=== PATIENT | female | born 1995 | race African-American/Black ===

== ENCOUNTER 2019-12-28 11:37 | Emergency (ER) | payer MEDICAID ==
[~2019-12-28] VITALS: Ht 185.4 cm; Wt 107.0 kg
[2019-12-28 11:58] VITALS: BP 131/80
== END 2019-12-28 14:40 | disposition left against medical advice (07) ==
LOC: ER 11:37
DX: Z53.21 Procedure and treatment not carried out due to patient leaving prior to being seen by health care provider (principal)